=== PATIENT | female | born 1960 | race Caucasian/White ===

== ENCOUNTER 2019-06-26 07:07 | Emergency (ER) | payer OTHER ==
[~2019-06-26] VITALS: Ht 157.5 cm; Wt 93.0 kg
[~2019-06-26 07:07] MED LIST: CELEXA 20 MG TA20 M1; CORTIZONE-1028 GM; COUMADIN 5 MG TA5 M1; CYCLOGYL5 M1; LOPRESSOR25; OMEPRAZOLE40 MG; TRIAMCINOLONE A80 G2; TYLENOL W/CODEI1 TA2 PO; VITAMIN D-32000 UNIT
[2019-06-26 07:28] LABS: ABSOLUTE NEUTROPHILS 3.4 thou/uL (1.4-8.2); BASOPHILS 0.5 % (0.0-2.0); EOSINOPHILS 3.5 % (0.0-3.0); HEMATOCRIT 37.2 % (37.0-47.0); HEMOGLOBIN 12.8 gm/dL (12.0-15.0); MCH 28.7 pg (26.0-34.0); MCHC 34.3 g/dL (28.0-37.0); MCV 83.6 fL (80.0-100.0); PLATELET COUNT 184 thou/uL (150-400); RBC 4.45 mil/uL (4.20-5.00); RDW 13.5 % (10.5-14.5); WBC 5.8 thou/uL (4.0-11.0)
[2019-06-26 07:37] LABS: ANION GAP 10 mmol/L (7-16); BUN 12 mg/dL (7-18); CALCIUM 9.7 mg/dL (8.5-10.1); CHLORIDE 105 mmol/L (98-107); CO2 24 mmol/L (21-32); CREATININE 0.9 mg/dL (0.6-1.0); GLUCOSE 130 mg/dL (74-106); POTASSIUM 3.8 mmol/L (3.5-5.1); SODIUM 139 mmol/L (136-145)
[2019-06-26 07:45] LABS: TROPONIN-I <0.06 ng/mL (<0.06)
--- NOTE | 2019-06-26 08:23 | EKG ---
[place] [address] [facility] [employer] [address] ELECTROCARDIOGRAM REPORT Name: CHEN,MANJINDER V [facility] [id number] ������������������ Admission: 06/26/19 ������������������ Attend Phys: Discharge: ������������������ Date of : 64 Report #: [id number] ����������������������������������������������������������������� [id number] THIS REPORT FOR: //name// [facility] ED Test Date: 2019-06-26 Test Time: 07:50:26 Pat Name: MANJINDER SIDDIQUI Department: Room: Gender: F [employer] Machine Operator: TODD : 1960 Requested By: Tommy Rios Order Number: [id number] MD: Monico Rivera Measurements Intervals [place] Rate: 68 P: 36 NE: 166 QRS: -1 QRSD: 155 T: 84 QT: 466 QTc: 496 Interpretive Statements Sinus rhythm Left bundle branch block No previous ECG available for comparison Electronically Signed On 06-26-2019 8:23:21 CDT by Monico Rivera [email or web address] ��������������������������������������������� <ELECTRONICALLY SIGNED> ���������������������������������������� By: Monico Rivera MD, [facility] ��������������������������������������������� 06/26/19 0823 0750 0750 Monico Rivera MD, FACC /EPI
[2019-06-26 08:30] LABS: INR 2.6; PROTIME 27.4 Seconds (9.3-11.4)
[2019-06-26 09:20] VITALS: BP 144/74
== END 2019-06-26 09:21 | disposition home or self-care (01) ==
LOC: ER 07:07
PROVIDERS: Emergency Medicine
DX: R07.89 Other chest pain (principal); R05 Cough; I10 Essential (primary) hypertension; F17.210 Nicotine dependence, cigarettes, uncomplicated; Z88.0 Allergy status to penicillin; Z91.040 Latex allergy status; Z88.2 Allergy status to sulfonamides; Z79.01 Long term (current) use of anticoagulants; Z79.899 Other long term (current) drug therapy; Z98.890 Other specified postprocedural states; Z86.19 Personal history of other infectious and parasitic diseases